=== PATIENT | male | born 2000 | race Caucasian/White ===

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

== ENCOUNTER 2021-01-06 17:00 | Outpatient (CLI) | payer MEDICAID, SELFPAY ==
--- NOTE | ~2021-01-06 | XR_ITS ---
EXAMINATION: XR foot RT min 3V DATE: 01/06/2021 17:13 INDICATION: Right foot pain and swelling. TECHNIQUE: 4 views of right foot were obtained. COMPARISON: Right foot radiographs 01/26/2016 FINDINGS: Bone alignment is normal. No fracture. Joint spaces are well maintained. IMPRESSION: 1. Normal right foot. Reviewed, dictated and finalized at location A. IMPRESSION: 1. Normal right foot.
== END 2021-01-06 17:01 | disposition home or self-care (01) ==
LOC: CHSIMG 17:02
PROVIDERS: PCP Family Medicine; Visit Provider Family Medicine
DX: R22.9 Localized swelling, mass and lump, unspecified (principal)
CPT/HCPCS: 73630

== ENCOUNTER 2021-02-10 05:47 | Emergency (ER) | payer MEDICAID, SELFPAY ==
[2021-02-10 05:51] VITALS: BP 120/73; PULSE 90; RESP 17; TEMP 36.7; O2SAT 100
[2021-02-10 05:58] VITALS: BP 122/76; PULSE 68; RESP 18; TEMP 36.8; O2SAT 99
--- NOTE | 2021-02-10 07:13 | ED.SKABFB ---
HPI - Skin/Abscess/Foreign Bdy General Chief complaint: Skin/Abscess/Foreign Body Stated complaint: Glass in foot Time Seen by Provider: 02/10/21 07:09 History of Present Illness HPI narrative: Healthy 20 yo male presents to the ED for glass in his foot left. He stepped on the glass this morning and thought that he got it out, but when he got to work he began to have pain again. He tried removing it himself be could not get the whole thing out. Related Data Home Medications Medication Instructions Recorded Confirmed omeprazole 20 mg PO DAILY 12/16/19 12/16/19 Allergies Allergy/AdvReac Type Severity Reaction Status Date / Time No Known Allergies Allergy Verified 12/16/19 16:53 Review of Systems Review of Systems: All systems reviewed & are unremarkable except as noted in HPI and below Constitutional: Constitutional: Denies chills and Denies fever(s) Respiratory: Respiratory: Denies dyspnea Gastrointestinal: Gastrointestinal: Denies nausea Integumentary/Breasts: Skin/Breast: Denies erythema Neurologic: Denies numbness and Denies weakness PMFSH Past Medical History Medical History GERD (gastroesophageal reflux disease) Social History Social History Gender identity (if verbalized by the patient): Male Exam Const: General: healthy appearing, no acute distress and alert Nutritional Appearance: well nourished Orientation/consciousness: patient oriented x3 HENMT: Head: normal to inspection Resp: Effort & Inspection: normal respiratory effort Skin: Other: Small glass splinter over the ball of his left foot. Course Vital Signs Vital signs: Vital Signs Temperature 36.7 C 02/10/21 05:51 Pulse Rate 90 02/10/21 05:51 Respiratory Rate 17 02/10/21 05:51 Blood Pressure 120/73 02/10/21 05:51 Pulse Oximetry 100 02/10/21 05:51 Temperature 36.8 C 02/10/21 05:58 Pulse Rate 68 02/10/21 05:58 Respiratory Rate 18 02/10/21 05:58 Blood Pressure 122/76 02/10/21 05:58 Pulse Oximetry 99 02/10/21 05:58 Procedures Foreign Body Removal Foreign Body #1: Site: left and foot Description of foreign body: other (glass) Technique: removal with forceps Confirmed by:: direct visualization Complications: none MDM - Skin/Abscess/Foreign Bdy MDM Narrative Medical decision making narrative: small superficial splinter. No bleeding. No comorbidities. Medical Records Attestation: I reviewed the patient's medical records. Discharge Plan Discharge Clinical Impression: Glass foreign body in skin Patient Disposition: Home, Self-Care Condition: Stable Instructions: Soft Tissue Foreign Body (ED) Prescriptions: No Action omeprazole 20 mg Tablet,Delayed Release (Dr/Ec) 20 mg PO DAILY RF: 0 oseltamivir 75 mg capsule 75 mg PO Q12H 5 Days Qty: 10 RF: 0 ondansetron 4 mg film 4 mg PO Q6H PRN (Reason: nausea and vomiting) Qty: 10 RF: 0 Follow-up/Referrals: Juliocesar Araujo MD [Primary Care Provider] -
== END 2021-02-10 07:50 | disposition home or self-care (01) ==
PROVIDERS: Emergency Provider Emergency Medicine; PCP Family Medicine
DX: S90.852A Superficial foreign body, left foot, initial encounter (principal); W45.8XXA Other foreign body or object entering through skin, initial encounter; W25.XXXA Contact with sharp glass, initial encounter
CPT/HCPCS: 99282

== ENCOUNTER 2021-11-28 16:25 | Outpatient (CLI) | payer MEDICAID, SELFPAY ==
--- NOTE | ~2021-11-28 | XR_ITS ---
XR hand RT min 3V 11/28/2021 17:11 Indication: Right hand pain Procedure: 3 views right hand Comparison: 05/17/2017 Findings: There is anatomic alignment. No fracture, subluxation or dislocation. No significant soft t issue abnormality. No foreign bodies. Impression: 1: No significant bone or joint abnormality. Reviewed, dictated and finalized at location B. 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
--- NOTE | ~2021-11-28 | XR_ITS ---
XR_[id number]_[id number] 11/28/2021 17:12 Indication: Neck pain Procedure: 3 views cervical spine Comparison: No prior studies for comparison. Findings: Vertebral body and disc heights are preserved. No fracture, subluxation or dislocation. No prevertebral soft tissue abnormality. Normal alignment. Lung apices are normal. Odontoid process with in normal limits. Lateral masses normally aligned. Impression: 1: No significant abnormality of the cervical spine. Reviewed, dictated and finalized at location B. 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
== END 2021-11-28 16:26 | disposition home or self-care (01) ==
LOC: CHSIMG 16:27
PROVIDERS: PCP Family Medicine; Visit Provider Family Medicine
DX: R22.31 Localized swelling, mass and lump, right upper limb (principal); M54.12 Radiculopathy, cervical region
CPT/HCPCS: 72040; 73130

== ENCOUNTER 2023-03-26 11:41 | Outpatient (CLI) | payer OTHER, SELFPAY ==
--- NOTE | ~2023-03-26 | XR_ITS ---
Clinical Indication: Bronchitis PA and lateral views of the chest: Comparison: None Findings: The lungs are clear, without evidence of focal consolidation or pleural effusion. Cardiome diastinal silhouette is within normal limits. Bones and soft tissues are unremarkable. Impression: Normal chest. Reviewed, dictated and finalized at location . Impression: Normal chest.
== END 2023-03-26 11:42 | disposition home or self-care (01) ==
LOC: CHSIMG 11:43
PROVIDERS: PCP Family Medicine; Visit Provider Family Medicine
DX: J40 Bronchitis, not specified as acute or chronic (principal)
CPT/HCPCS: 71046

== ENCOUNTER 2023-05-03 14:43 | Outpatient (CLI) | payer OTHER, SELFPAY ==
--- NOTE | 2023-05-07 09:39 | P.PCNPFT_ITS ---
PFT Procedure Performed PFT Procedure Performed Spirometry with Pre/Post Bronchodilator Plethysmography (Lung Vol) Diffusing Cap (DLCO) Flow Vol Loop PFT Interpretation DOS: 05/03/2023 REQUESTING: Juliocesar Araujo MD REASON FOR TESTING: bronchitis, shortness of breath PULMONARY FUNCTION TESTS Results are reliable and reproducible. Spirometry: pre bronchodilator FEV1 is 5.23 L, 103%, normal. Pre bronchodilator FVC is 7.31 L, 120%, above normal. FEV1/ FVC ratio is 72%, below normal. The FEF 25-75% is 3.95 L, 73% normal. After bronchodilator administration there is a 9% increase in the FEV1, 112% predicted, this is 5.72 L. this is not statistically significant as it is less than a 12% increase. There is a 40% increase in the FEF 25-75%, 5.51 L, 102% predicted. Lung volumes: Total lung capacity 8.79 L, 118%, normal. Residual volume 1.31 L, 82%, normal. RV/TLC is 15%, within normal range. Airway resistance is 1.86, 166% predicted, elevated. Diffusion: DLCO is 37.6, 97%, normal. DLCO /VA is 4.56, 86%, normal. Flow volume loop: Unremarkable IMPRESSION: This study shows a mild obstructive ventilatory impairment without significant response to bronchodilator, normal lung volumes and normal diffusion. Lack of response to bronchodilator should not preclude use if c linically indicated. Sylvia Sunshine MD
== END 2023-05-03 14:44 | disposition home or self-care (01) ==
PROVIDERS: PCP Family Medicine; Visit Provider Family Medicine
DX: J40 Bronchitis, not specified as acute or chronic (principal); R94.2 Abnormal results of pulmonary function studies
CPT/HCPCS: 94060; 94726; 94729